=== PATIENT | female | born 1980 | race Caucasian/White ===

== ENCOUNTER 2022-09-30 06:09 | Inpatient (IN) | payer MEDICAID, OTHER ==
[~2022-09-30] VITALS: Ht 152.4 cm; Wt 40.2 kg
[2022-09-30 07:43] LABS: Albumin 3.4 g/dL (3.4-5.0); Calcium 8.9 mg/dL (8.5-10.1); Potassium 3.1 mmol/L (3.5-5.1)
[2022-09-30 07:46] LABS: BUN/Creatinine Ratio 19.1
[2022-09-30 07:52] LABS: Basophils # (auto) 0.1 10 ^3/uL (0-0.2); Eosinophils # (auto) 0.1 10 ^3/uL (0-0.8); Eosinophils % (auto) 0.9 % (0.0-7.0); Lymphocytes # (auto) 1.5 10 ^3/uL (0.4-5.4); Monocytes # (auto) 0.5 10 ^3/uL (0-1.3)
[2022-09-30 07:54] LABS: Hematocrit 41.3 % (36.0-46.0); Lymphocytes % (auto) 20.3 % (10.0-50.0); Mean Corpuscular Hemoglobin 23.3 pg (28.0-32.0); Mean Corpuscular Hgb Conc. 31.5 g/dL (32.0-36.0); Mean Corpuscular Volume 73.8 fL (80.0-100.0); Monocytes % (auto) 7.3 % (0.0-12.0); Neutrophils # (auto) 5.3 10 ^3/uL (1.6-8.6); Neutrophils % (auto) 70.5 % (37.0-80.0); Nucleated Red Blood Cells % 0.3 %; White Blood Cell 7.5 10^3/uL (4.4-10.8)
[2022-09-30 08:41] LABS: Red Cell Distribution Width 21.7 % (11.8-14.3)
[2022-09-30] MEDS ORDERED: SODIUM CHLORIDE 0.9% 1,000 ML IV ONE (10:45)
[2022-09-30 11:59] LABS: Urine Bacteria NONE SEEN /hpf (None Seen); Urine Blood 1+ /uL (Negative); Urine Specific Gravity 1.006 (1.001-1.035); Urine WBC 37 /hpf (0 - 5)
[2022-09-30] MEDS ORDERED: POTASSIUM EFFERVESENT TAB 25 MEQ PO ONE (13:45)
[2022-09-30] MEDS ORDERED: cefTRIAXone 1GM/50ML D5W 50 ML IV ONE (13:45)
[2022-09-30] MEDS ORDERED: FUROSEMIDE 40 MG/4 ML VIAL IV ONE (17:15)
[2022-09-30] MEDS ORDERED: MORPHINE SULFATE INJ 2 MG/ml SYRG IV PRN (17:15)
[2022-09-30] MEDS ORDERED: DEXTROSE (50%) 50ML SYRG IV PRN (17:15)
[2022-09-30] MEDS ORDERED: NITROGLYCERIN 0.4 MG SL TAB SL PRN (17:15)
[2022-09-30] MEDS ORDERED: CARV3.1240 PO (17:28)
[2022-09-30] MEDS ORDERED: hydrALAZINE HCL 20 MG/ML VL IV PRN (17:30)
[2022-09-30] MEDS ORDERED: ASPirin 325 MG TAB PO ONE (17:30)
[2022-09-30 18:17] LABS: Cholesterol 112 mg/dL (< 200)
[2022-09-30 18:20] LABS: HDL Cholesterol 25 mg/dL (40-59); LDL Cholesterol 77 mg/dL (< 100); Triglycerides 83 mg/dL (< 150)
[2022-09-30 18:20] LABS: Lactic Acid w/Reflex 3.1 mmol/L (0.4-2.0)
[2022-09-30 19:30] VITALS: BP 115/71
[2022-10-01 06:24] LABS: Basophils # (auto) 0.1 10 ^3/uL (0-0.2); Eosinophils # (auto) 0.1 10 ^3/uL (0-0.8)
[2022-10-01 06:25] LABS: Basophils % (auto) 1.2 % (0.0-2.0); Eosinophils % (auto) 0.9 % (0.0-7.0); Hematocrit 37.3 % (36.0-46.0); Hemoglobin 12.3 g/dL (12.2-16.2); Lymphocytes # (auto) 1.7 10 ^3/uL (0.4-5.4); Lymphocytes % (auto) 23.3 % (10.0-50.0); Mean Corpuscular Hemoglobin 23.9 pg (28.0-32.0); Mean Corpuscular Hgb Conc. 32.9 g/dL (32.0-36.0); Mean Corpuscular Volume 72.5 fL (80.0-100.0); Monocytes # (auto) 0.6 10 ^3/uL (0-1.3); Monocytes % (auto) 7.8 % (0.0-12.0); Neutrophils # (auto) 4.9 10 ^3/uL (1.6-8.6); Neutrophils % (auto) 66.8 % (37.0-80.0); Nucleated Red Blood Cells % 0.2 %; Red Blood Cells 5.14 10^6/uL (4.0-5.20); White Blood Cell 7.3 10^3/uL (4.4-10.8)
[2022-10-01 06:26] LABS: Red Cell Distribution Width 21.6 % (11.8-14.3)
[2022-10-01 06:40] LABS: Albumin 3.3 g/dL (3.4-5.0); Calcium 8.6 mg/dL (8.5-10.1); Potassium 3.2 mmol/L (3.5-5.1)
[2022-10-01 06:45] LABS: BUN/Creatinine Ratio 14.5; Bilirubin, Total 3.7 mg/dL (0.2-1.0); Total Protein 6.3 g/dL (6.4-8.2)
[2022-10-01] MEDS: ACCU-CHEK COMFORT CURVE STRIP VI SCH ×5 (08:49→21:51)
[2022-10-01] MEDS: InsuLIN REG 1unit/0.01ml Soln (100units/ml) SC SCH ×5 (08:49→21:51)
[2022-10-01] MEDS: AZTREONAM 1GM INJ 1 GM in D5W 5% 50 ML IV SCH ×4 (08:49→21:51)
[2022-10-01] MEDS: MAGNESIUM SULFATE 1GM/100ML 100 ML IV SCH (08:52)
[2022-10-01] MEDS: ATORVASTATIN 20 MG TAB PO SCH ×2 (08:56→21:51)
[2022-10-01] MEDS ORDERED: POTASSIUM EFFERVESENT TAB 25 MEQ PO ONE (09:00)
[2022-10-01] MEDS: SODIUM CHLORIDE 0.9% 1,000 ML IV SCH ×3 (09:07→23:17)
[2022-10-01 09:32] VITALS: BP 79/60
[2022-10-01] MEDS: ASPirin 81 mg TAB PO SCH (10:00)
[2022-10-01] MEDS ORDERED: FUROSEMIDE 40 MG/4 ML VIAL IV SCH (10:00)
[2022-10-01] MEDS: NICOTINE 7MG/24HR TOPICAL PATCH TD SCH (11:00)
[2022-10-01] MEDS: ENOXAPARIN SOD 40 MG/0.4 ML SYRINGE SC SCH (11:46)
[2022-10-01 17:28] VITALS: BP 108/73
[2022-10-01 17:46] VITALS: BP 108/73
[2022-10-01 22:00] VITALS: BP 93/66
[2022-10-02 05:00] VITALS: BP 109/77
[2022-10-02] MEDS: AZTREONAM 1GM INJ 1 GM in D5W 5% 50 ML IV SCH ×3 (05:08→22:40)
[2022-10-02] MEDS: ACCU-CHEK COMFORT CURVE STRIP VI SCH ×4 (06:26→22:00)
[2022-10-02] MEDS: InsuLIN REG 1unit/0.01ml Soln (100units/ml) SC SCH ×4 (06:27→22:42)
[2022-10-02 07:05] LABS: Basophils # (auto) 0.1 10 ^3/uL (0-0.2); Eosinophils # (auto) 0.1 10 ^3/uL (0-0.8); Hemoglobin 11.9 g/dL (12.2-16.2); Lymphocytes # (auto) 1.3 10 ^3/uL (0.4-5.4); Mean Corpuscular Hemoglobin 22.7 pg (28.0-32.0); Nucleated Red Blood Cells % 0.1 %
[2022-10-02 07:08] LABS: Basophils % (auto) 1.2 % (0.0-2.0); Hematocrit 38.1 % (36.0-46.0); Lymphocytes % (auto) 20.7 % (10.0-50.0); Mean Corpuscular Hgb Conc. 31.1 g/dL (32.0-36.0); Mean Corpuscular Volume 72.8 fL (80.0-100.0); Monocytes # (auto) 0.5 10 ^3/uL (0-1.3); Monocytes % (auto) 8.2 % (0.0-12.0); Neutrophils # (auto) 4.4 10 ^3/uL (1.6-8.6); Neutrophils % (auto) 67.9 % (37.0-80.0); Red Blood Cells 5.23 10^6/uL (4.0-5.20); White Blood Cell 6.4 10^3/uL (4.4-10.8)
[2022-10-02 07:18] LABS: Red Cell Distribution Width 21.8 % (11.8-14.3)
[2022-10-02 07:23] LABS: BUN/Creatinine Ratio 26.8; Calcium 8.4 mg/dL (8.5-10.1); Potassium 3.5 mmol/L (3.5-5.1)
[2022-10-02 09:00] VITALS: BP 110/84
[2022-10-02] MEDS: ALBUTEROL MEDNEB 2.5 mg/3ml NEB NEB PRN (09:10)
[2022-10-02] MEDS: NICOTINE 7MG/24HR TOPICAL PATCH TD SCH (10:00)
[2022-10-02] MEDS ORDERED: FUROSEMIDE 40 MG/4 ML VIAL IV ONE (10:00)
[2022-10-02] MEDS: ASPirin 81 mg TAB PO SCH (10:00)
[2022-10-02] MEDS: FUROSEMIDE 40 MG/4 ML VIAL IV SCH ×2 (10:01→16:48)
[2022-10-02] MEDS: ENOXAPARIN SOD 40 MG/0.4 ML SYRINGE SC SCH (11:13)
[2022-10-02] MEDS: MORPHINE SULFATE INJ 2 MG/ml SYRG IV PRN ×2 (11:21→17:15)
[2022-10-02 11:54] LABS: Alcohol, Urine < 3.0 mg/dL (0-10); Amphetamine Screen, Urine NEGATIVE (NEGATIVE); Barbiturate Scree,Urine NEGATIVE (NEGATIVE); Benzodiazephine Screen, Urine NEGATIVE (NEGATIVE); Cannabinoid Screen, Urine NEGATIVE (NEGATIVE); Cocaine Screen, Urine NEGATIVE (NEGATIVE); Opiate Scree,Urine NEGATIVE (NEGATIVE); Phencyclidine Screen, Urine NEGATIVE (NEGATIVE)
[2022-10-02 13:00] VITALS: BP 117/90
[2022-10-02 17:00] VITALS: BP 121/87
[2022-10-02 20:00] VITALS: BP 105/78
[2022-10-02 22:00] VITALS: BP 105/78
[2022-10-02] MEDS: ATORVASTATIN 20 MG TAB PO SCH (22:41)
[2022-10-02] MEDS: POTASSIUM EFFERVESENT TAB 25 MEQ PO SCH (22:41)
[2022-10-03 05:00] VITALS: BP 106/77
[2022-10-03] MEDS: AZTREONAM 1GM INJ 1 GM in D5W 5% 50 ML IV SCH ×3 (06:01→23:21)
[2022-10-03] MEDS: ACCU-CHEK COMFORT CURVE STRIP VI SCH ×4 (06:02→21:13)
[2022-10-03] MEDS: InsuLIN REG 1unit/0.01ml Soln (100units/ml) SC SCH ×4 (06:02→21:13)
[2022-10-03] MEDS: FUROSEMIDE 40 MG/4 ML VIAL IV SCH ×2 (06:02→18:15)
[2022-10-03 06:34] LABS: Basophils # (auto) 0.1 10 ^3/uL (0-0.2); Eosinophils # (auto) 0.1 10 ^3/uL (0-0.8); Eosinophils % (auto) 1.2 % (0.0-7.0); Hemoglobin 11.8 g/dL (12.2-16.2); Lymphocytes # (auto) 1.5 10 ^3/uL (0.4-5.4); Monocytes # (auto) 0.7 10 ^3/uL (0-1.3); Nucleated Red Blood Cells % 0.1 %
[2022-10-03 06:36] LABS: Basophils % (auto) 1.1 % (0.0-2.0); Hematocrit 37.6 % (36.0-46.0); Lymphocytes % (auto) 17.9 % (10.0-50.0); Mean Corpuscular Hemoglobin 22.9 pg (28.0-32.0); Mean Corpuscular Hgb Conc. 31.4 g/dL (32.0-36.0); Monocytes % (auto) 8.6 % (0.0-12.0); Neutrophils # (auto) 5.8 10 ^3/uL (1.6-8.6); Neutrophils % (auto) 71.2 % (37.0-80.0); Red Blood Cells 5.15 10^6/uL (4.0-5.20); White Blood Cell 8.1 10^3/uL (4.4-10.8)
[2022-10-03 06:41] LABS: Red Cell Distribution Width 21.9 % (11.8-14.3)
[2022-10-03 07:07] LABS: Potassium 3.9 mmol/L (3.5-5.1)
[2022-10-03 07:18] LABS: BUN/Creatinine Ratio 19.5; Calcium 8.8 mg/dL (8.5-10.1)
[2022-10-03 08:00] VITALS: BP_SYST 105; BP_SYST 108; BP_DIAS 78; BP_DIAS 80
[2022-10-03] MEDS: NICOTINE 7MG/24HR TOPICAL PATCH TD SCH (10:00)
[2022-10-03 12:00] VITALS: BP 97/53
[2022-10-03] MEDS ORDERED: FUROSEMIDE 40 MG/4 ML VIAL IV ONE (12:00)
[2022-10-03] MEDS: POTASSIUM EFFERVESENT TAB 25 MEQ PO SCH ×2 (12:00→21:21)
[2022-10-03] MEDS: ENOXAPARIN SOD 40 MG/0.4 ML SYRINGE SC SCH (12:03)
[2022-10-03] MEDS: ASPirin 81 mg TAB PO SCH (12:04)
[2022-10-03] MEDS: ALBUTEROL MEDNEB 2.5 mg/3ml NEB NEB PRN (13:26)
[2022-10-03] MEDS ORDERED: LORazepam 2MG/ML-1ML VIAL IV PRN (13:45)
[2022-10-03] MEDS: ACETAMINOPHEN 325 MG TAB PO PRN (13:46)
[2022-10-03 16:00] VITALS: BP 106/85
[2022-10-03] MEDS ORDERED: FUROSEMIDE 40 MG/4 ML VIAL IV SCH (18:00)
[2022-10-03] MEDS ORDERED: ALBUAER3 IN (18:21)
[2022-10-03] MEDS ORDERED: BUME2TAB5 PO (18:23)
[2022-10-03] MEDS ORDERED: SPIR25TA8 PO (18:23)
[2022-10-03] MEDS ORDERED: ONDA-155 PO (18:24)
[2022-10-03] MEDS ORDERED: DOCU100C10 PO (18:26)
[2022-10-03] MEDS ORDERED: PRED1PAK9 PO (18:27)
[2022-10-03] MEDS ORDERED: POLY33504 PO (18:28)
[2022-10-03] MEDS: ATORVASTATIN 20 MG TAB PO SCH (21:21)
[2022-10-03 22:00] VITALS: BP 98/58
[2022-10-03] MEDS: MORPHINE SULFATE INJ 2 MG/ml SYRG IV PRN (22:47)
[2022-10-04] MEDS: HYDROcodone-ACET 5/325MG TAB PO PRN (02:05)
[2022-10-04 05:00] VITALS: BP 109/70
[2022-10-04] MEDS: FUROSEMIDE 40 MG/4 ML VIAL IV SCH ×2 (06:13→18:57)
[2022-10-04] MEDS: ACCU-CHEK COMFORT CURVE STRIP VI SCH ×4 (06:14→22:12)
[2022-10-04] MEDS: AZTREONAM 1GM INJ 1 GM in D5W 5% 50 ML IV SCH ×3 (06:14→22:10)
[2022-10-04] MEDS: InsuLIN REG 1unit/0.01ml Soln (100units/ml) SC SCH ×4 (06:14→22:00)
[2022-10-04 08:00] VITALS: BP 101/56
[2022-10-04] MEDS: POTASSIUM EFFERVESENT TAB 25 MEQ PO SCH ×2 (10:00→22:11)
[2022-10-04] MEDS: NICOTINE 7MG/24HR TOPICAL PATCH TD SCH (10:00)
[2022-10-04] MEDS: ASPirin 81 mg TAB PO SCH (11:02)
[2022-10-04] MEDS: ENOXAPARIN SOD 40 MG/0.4 ML SYRINGE SC SCH (11:04)
[2022-10-04] MEDS: MORPHINE SULFATE INJ 2 MG/ml SYRG IV PRN ×2 (11:06→20:24)
[2022-10-04 12:00] VITALS: BP_SYST 102; BP_SYST 95; BP_DIAS 58; BP_DIAS 67
[2022-10-04 16:00] VITALS: BP 100/70
[2022-10-04 22:00] VITALS: BP 104/70
[2022-10-04] MEDS: ATORVASTATIN 20 MG TAB PO SCH (22:11)
[2022-10-05] VITALS (9 sets, daily range): BP systolic 99–115; BP diastolic 59–78
[2022-10-05] MEDS: AZTREONAM 1GM INJ 1 GM in D5W 5% 50 ML IV SCH ×2 (05:43→15:05)
[2022-10-05] MEDS: FUROSEMIDE 40 MG/4 ML VIAL IV SCH ×2 (05:44→17:42)
[2022-10-05] MEDS: InsuLIN REG 1unit/0.01ml Soln (100units/ml) SC SCH ×4 (05:57→22:00)
[2022-10-05] MEDS: ACCU-CHEK COMFORT CURVE STRIP VI SCH ×4 (05:57→22:16)
[2022-10-05] MEDS: MORPHINE SULFATE INJ 2 MG/ml SYRG IV PRN ×3 (07:50→23:16)
[2022-10-05] MEDS: ENOXAPARIN SOD 40 MG/0.4 ML SYRINGE SC SCH (09:32)
[2022-10-05] MEDS: POTASSIUM EFFERVESENT TAB 25 MEQ PO SCH ×2 (09:32→22:08)
[2022-10-05] MEDS: ASPirin 81 mg TAB PO SCH (09:41)
[2022-10-05] MEDS: NICOTINE 7MG/24HR TOPICAL PATCH TD SCH (10:00)
[2022-10-05] MEDS: ONDANSETRON HCL 4 MG/2 ML VIAL IV PRN (11:29)
[2022-10-05] MEDS: ATORVASTATIN 20 MG TAB PO SCH (22:07)
[2022-10-06] VITALS (51 sets, daily range): BP systolic 63–125; BP diastolic 13–76
[2022-10-06] MEDS ORDERED: SODIUM CHLORIDE 0.9% 500 ML IV ONE (03:15)
[2022-10-06] MEDS: HYDROcodone-ACET 5/325MG TAB PO PRN (04:29)
[2022-10-06] MEDS: FUROSEMIDE 40 MG/4 ML VIAL IV SCH (06:00)
[2022-10-06] MEDS: ACCU-CHEK COMFORT CURVE STRIP VI SCH ×4 (07:00→22:26)
[2022-10-06] MEDS: InsuLIN REG 1unit/0.01ml Soln (100units/ml) SC SCH ×4 (07:00→22:00)
[2022-10-06] MEDS ORDERED: cefTRIAXone 1GM/50ML D5W 50 ML IV SCH (09:00)
[2022-10-06 09:41] LABS: INR 1.67 (0.9-1.15); Partial Thromboplastin Time 27.5 sec (24.6-33.4)
[2022-10-06] MEDS: ASPirin 81 mg TAB PO SCH (10:30)
[2022-10-06] MEDS ORDERED: NOREPINEPHRINE 8 MG/250ML KIT 250 ML IV SCH (10:30)
[2022-10-06] MEDS: ENOXAPARIN SOD 40 MG/0.4 ML SYRINGE SC SCH (10:31)
[2022-10-06] MEDS: POTASSIUM EFFERVESENT TAB 25 MEQ PO SCH (10:31)
[2022-10-06] MEDS: NICOTINE 7MG/24HR TOPICAL PATCH TD SCH (10:31)
[2022-10-06] MEDS ORDERED: NOREPINEPHRINE 8 MG/250ML KIT 250 ML IV ONE (10:41)
[2022-10-06] MEDS: ONDANSETRON HCL 4 MG/2 ML VIAL IV PRN ×2 (10:50→17:02)
[2022-10-06 10:58] LABS: Basophils # (auto) 0.1 10 ^3/uL (0-0.2); Eosinophils # (auto) 0 10 ^3/uL (0-0.8); Hemoglobin 12.8 g/dL (12.2-16.2); Monocytes # (auto) 1.2 10 ^3/uL (0-1.3); Nucleated Red Blood Cells % 0.1 %
[2022-10-06 11:04] LABS: Basophils % (auto) 0.6 % (0.0-2.0); Hematocrit 43.8 % (36.0-46.0); Lymphocytes # (auto) 1.4 10 ^3/uL (0.4-5.4); Lymphocytes % (auto) 10.7 % (10.0-50.0); Mean Corpuscular Hemoglobin 22.4 pg (28.0-32.0); Mean Corpuscular Hgb Conc. 29.3 g/dL (32.0-36.0); Mean Corpuscular Volume 76.5 fL (80.0-100.0); Monocytes % (auto) 8.8 % (0.0-12.0); Neutrophils # (auto) 10.7 10 ^3/uL (1.6-8.6); Neutrophils % (auto) 79.9 % (37.0-80.0); Red Blood Cells 5.73 10^6/uL (4.0-5.20); White Blood Cell 13.4 10^3/uL (4.4-10.8)
[2022-10-06 11:16] LABS: Red Cell Distribution Width 22.4 % (11.8-14.3)
[2022-10-06 12:11] LABS: Lactic Acid w/Reflex 14.2 mmol/L (0.4-2.0)
[2022-10-06] MEDS ORDERED: LACTULOSE 20Gm/30ML SOLN PO ONE (12:45)
[2022-10-06] MEDS: MORPHINE SULFATE INJ 2 MG/ml SYRG IV PRN ×2 (12:48→17:51)
[2022-10-06] MEDS ORDERED: SODIUM CHLORIDE 0.9% 250 ML IV ONE ×2 (13:00→16:00)
[2022-10-06] MEDS ORDERED: PIPERACILLIN-TAZOB 3.375GM 100 ML IV ONE (13:30)
[2022-10-06] MEDS ORDERED: PIPERACILLIN-TAZOB 3.375GM 100 ML IV SCH (14:00)
[2022-10-06] MEDS ORDERED: MEROPENEM 1GM IVPB 100 ML IV ONE (14:15)
[2022-10-06] MEDS ORDERED: SODIUM BICARBONATE 50ML VIAL 100 ML in SOD CHL 0.45% 1,000 ML IV SCH (14:30)
[2022-10-06] MEDS ORDERED: SODIUM BICARBONATE 8.4 % INJ 50ML VIAL IV ONE (14:43)
[2022-10-06] MEDS ORDERED: PHENYLEPHRINE IV 250 ML IV SCH (14:45)
[2022-10-06] MEDS: DOPamine 1600MCG/ML D5W 250 ML IV SCH (15:09)
[2022-10-06 15:27] LABS: BUN/Creatinine Ratio 19.7; Calcium 7.9 mg/dL (8.5-10.1)
[2022-10-06] MEDS ORDERED: InsuLIN REG 1unit/0.01ml Soln (100units/ml) IV ONE ×2 (15:30→16:00)
[2022-10-06] MEDS ORDERED: ALBUTEROL SULF 2.5 MG/0.5ML(0.5%) NEB SOLN NEB ONE ×2 (15:30→16:00)
[2022-10-06] MEDS ORDERED: DEXTROSE (50%) 50ML SYRG IV ONE ×2 (15:30→16:00)
[2022-10-06] MEDS ORDERED: SODIUM ZIRCONIUM CYCL 10 GM PAK PO ONE (15:30)
[2022-10-06 15:32] LABS: Potassium 6.4 mmol/L (3.5-5.1)
[2022-10-06] MEDS ORDERED: LIDOCAINE 1% (LOCAL ANESTH.) PF 5ml SDV ID ONE (15:45)
[2022-10-06] MEDS ORDERED: CALCIUM GLUC 1,000mg/50ml-NS 50 ML IV ONE (16:00)
[2022-10-06] MEDS ORDERED: SODIUM BICARBONATE 8.4% INJ 50ML SYRINGE IV ONE (16:00)
[2022-10-06] MEDS ORDERED: VASOPRESSIN 20 UNITS in SODIUM CHL 0.9% 99 ML IV SCH (16:00)
[2022-10-06] MEDS: NOREPINEPHRINE 8 MG/250ML KIT 250 ML IV SCH ×2 (16:19→22:35)
[2022-10-06] MEDS: SODIUM BICARBONATE 50ML VIAL 50 ML in SOD CHL 0.45% 1,000 ML IV SCH (16:58)
[2022-10-06 19:44] LABS: Creatinine, Urine 78 mg/dL (30.0-125.0); Protein, Urine 20.9 mg/dL (0.0-11.9); Sodium Urine < 5 mmol/L (40-220)
[2022-10-06] MEDS: ATORVASTATIN 20 MG TAB PO SCH (22:00)
[2022-10-06] MEDS: SODIUM CHLOR 0.9% PF (SALINE LOCK) 10ML VIAL/SYR IV SCH (22:24)
[2022-10-07] VITALS (49 sets, daily range): BP systolic 105–140; BP diastolic 61–91
[2022-10-07] MEDS ORDERED: SODIUM ZIRCONIUM CYCL 10 GM PAK PO ONE (01:15)
[2022-10-07] MEDS ORDERED: SODIUM ZIRCONIUM CYCL 10 GM PAK ONE (01:18)
[2022-10-07] MEDS ORDERED: methylPREDNISolone SOD SUCC 40 MG/ML VL ONE (01:18)
[2022-10-07] MEDS: MEROPENEM 1GM IVPB 100 ML IV SCH ×2 (03:00→15:05)
[2022-10-07 04:25] LABS: Basophils # (auto) 0.1 10 ^3/uL (0-0.2); Eosinophils # (auto) 0 10 ^3/uL (0-0.8); Mean Corpuscular Hemoglobin 23.2 pg (28.0-32.0); Monocytes # (auto) 0.9 10 ^3/uL (0-1.3); Nucleated Red Blood Cells % 0.1 %; Red Blood Cells 5.28 10^6/uL (4.0-5.20)
[2022-10-07 04:29] LABS: Basophils % (auto) 0.7 % (0.0-2.0); Eosinophils % (auto) 0.1 % (0.0-7.0); Hematocrit 38.8 % (36.0-46.0); Hemoglobin 12.3 g/dL (12.2-16.2); Lymphocytes # (auto) 0.9 10 ^3/uL (0.4-5.4); Lymphocytes % (auto) 7.3 % (10.0-50.0); Mean Corpuscular Hgb Conc. 31.6 g/dL (32.0-36.0); Mean Corpuscular Volume 73.5 fL (80.0-100.0); Monocytes % (auto) 7.4 % (0.0-12.0); Neutrophils # (auto) 10.9 10 ^3/uL (1.6-8.6); Neutrophils % (auto) 84.5 % (37.0-80.0); White Blood Cell 12.9 10^3/uL (4.4-10.8)
[2022-10-07 04:34] LABS: BUN/Creatinine Ratio 24.2; Calcium 9.1 mg/dL (8.5-10.1); Potassium 5.2 mmol/L (3.5-5.1)
[2022-10-07 04:39] LABS: Red Cell Distribution Width 21.8 % (11.8-14.3)
[2022-10-07] MEDS: ACCU-CHEK COMFORT CURVE STRIP VI SCH ×3 (06:30→19:00)
[2022-10-07] MEDS: InsuLIN REG 1unit/0.01ml Soln (100units/ml) SC SCH ×3 (06:31→18:59)
[2022-10-07] MEDS: NOREPINEPHRINE 8 MG/250ML KIT 250 ML IV SCH ×2 (06:40→11:15)
[2022-10-07] MEDS: FUROSEMIDE 40 MG/4 ML VIAL IV SCH ×2 (10:00→10:06)
[2022-10-07] MEDS: MORPHINE SULFATE INJ 2 MG/ml SYRG IV PRN ×2 (10:01→13:56)
[2022-10-07] MEDS: ENOXAPARIN SOD 40 MG/0.4 ML SYRINGE SC SCH (10:06)
[2022-10-07] MEDS: ASPirin 81 mg TAB PO SCH (10:08)
[2022-10-07] MEDS: NICOTINE 7MG/24HR TOPICAL PATCH TD SCH (10:08)
[2022-10-07] MEDS: SODIUM CHLOR 0.9% PF (SALINE LOCK) 10ML VIAL/SYR IV SCH ×2 (10:09→23:00)
[2022-10-07] MEDS: SODIUM BICARBONATE 50ML VIAL 50 ML in SOD CHL 0.45% 1,000 ML IV SCH (13:59)
[2022-10-07] MEDS: ATORVASTATIN 20 MG TAB PO SCH (23:01)
[2022-10-07] MEDS ORDERED: methylPREDNISolone SOD SUCC 40 MG/ML VL IV SCH (23:30)
[2022-10-08] VITALS (79 sets, daily range): BP systolic 87–128; BP diastolic 50–86
[2022-10-08] MEDS: ACCU-CHEK COMFORT CURVE STRIP VI SCH ×5 (00:05→21:24)
[2022-10-08] MEDS: InsuLIN REG 1unit/0.01ml Soln (100units/ml) SC SCH ×5 (00:28→21:24)
[2022-10-08] MEDS: MEROPENEM 1GM IVPB 100 ML IV SCH ×3 (03:00→21:25)
[2022-10-08 04:11] LABS: Basophils # (auto) 0 10 ^3/uL (0-0.2); Basophils % (auto) 0.1 % (0.0-2.0); Eosinophils # (auto) 0 10 ^3/uL (0-0.8); Lymphocytes # (auto) 0.6 10 ^3/uL (0.4-5.4); Lymphocytes % (auto) 4.8 % (10.0-50.0)
[2022-10-08 04:13] LABS: Hematocrit 36.3 % (36.0-46.0); Hemoglobin 11.4 g/dL (12.2-16.2); Mean Corpuscular Hemoglobin 23.3 pg (28.0-32.0); Mean Corpuscular Hgb Conc. 31.3 g/dL (32.0-36.0); Mean Corpuscular Volume 74.4 fL (80.0-100.0); Monocytes % (auto) 8.1 % (0.0-12.0); Neutrophils # (auto) 11.2 10 ^3/uL (1.6-8.6); Red Blood Cells 4.88 10^6/uL (4.0-5.20); White Blood Cell 12.9 10^3/uL (4.4-10.8)
[2022-10-08 04:19] LABS: Red Cell Distribution Width 22.4 % (11.8-14.3)
[2022-10-08 04:22] LABS: Calcium 8.5 mg/dL (8.5-10.1); Potassium 3.9 mmol/L (3.5-5.1)
[2022-10-08 04:25] LABS: BUN/Creatinine Ratio 31.3
[2022-10-08] MEDS: SODIUM BICARBONATE 50ML VIAL 50 ML in SOD CHL 0.45% 1,000 ML IV SCH ×2 (05:00→13:15)
[2022-10-08] MEDS: ENOXAPARIN SOD 40 MG/0.4 ML SYRINGE SC SCH (09:32)
[2022-10-08] MEDS: NICOTINE 7MG/24HR TOPICAL PATCH TD SCH (09:33)
[2022-10-08] MEDS: ASPirin 81 mg TAB PO SCH (09:35)
[2022-10-08] MEDS: FUROSEMIDE 40 MG/4 ML VIAL IV SCH (09:35)
[2022-10-08] MEDS: MORPHINE SULFATE INJ 2 MG/ml SYRG IV PRN ×2 (09:38→19:00)
[2022-10-08] MEDS: SODIUM CHLOR 0.9% PF (SALINE LOCK) 10ML VIAL/SYR IV SCH ×2 (10:30→21:25)
[2022-10-08 14:02] LABS: Hepatitis C Antibody Negative (Negative)
[2022-10-08] MEDS: DOPamine 1600MCG/ML D5W 250 ML IV SCH ×2 (14:30→15:14)
[2022-10-08] MEDS: NOREPINEPHRINE 8 MG/250ML KIT 250 ML IV SCH (14:30)
[2022-10-08] MEDS: ATORVASTATIN 20 MG TAB PO SCH (21:24)
[2022-10-09] VITALS (42 sets, daily range): BP systolic 85–114; BP diastolic 59–84
[2022-10-09 04:11] LABS: Basophils # (auto) 0 10 ^3/uL (0-0.2); Basophils % (auto) 0.2 % (0.0-2.0); Eosinophils # (auto) 0 10 ^3/uL (0-0.8); Eosinophils % (auto) 0.5 % (0.0-7.0); Monocytes # (auto) 0.8 10 ^3/uL (0-1.3); Neutrophils # (auto) 5.5 10 ^3/uL (1.6-8.6); Nucleated Red Blood Cells % 0.1 %
[2022-10-09 04:13] LABS: Hemoglobin 11.4 g/dL (12.2-16.2); Lymphocytes # (auto) 1.4 10 ^3/uL (0.4-5.4); Lymphocytes % (auto) 17.7 % (10.0-50.0); Mean Corpuscular Hemoglobin 22.3 pg (28.0-32.0); Mean Corpuscular Hgb Conc. 30.1 g/dL (32.0-36.0); Monocytes % (auto) 10.3 % (0.0-12.0); Neutrophils % (auto) 71.3 % (37.0-80.0); Red Blood Cells 5.14 10^6/uL (4.0-5.20); White Blood Cell 7.7 10^3/uL (4.4-10.8)
[2022-10-09 04:15] LABS: Red Cell Distribution Width 22.3 % (11.8-14.3)
[2022-10-09 04:20] LABS: BUN/Creatinine Ratio 40.4; Calcium 8.2 mg/dL (8.5-10.1); Potassium 3.6 mmol/L (3.5-5.1)
[2022-10-09 04:25] LABS: INR 1.29 (0.9-1.15); Partial Thromboplastin Time 29.2 sec (24.6-33.4)
[2022-10-09] MEDS: MEROPENEM 1GM IVPB 100 ML IV SCH ×3 (05:03→21:33)
[2022-10-09] MEDS: InsuLIN REG 1unit/0.01ml Soln (100units/ml) SC SCH ×4 (06:21→21:58)
[2022-10-09] MEDS: ACCU-CHEK COMFORT CURVE STRIP VI SCH ×4 (06:21→21:33)
[2022-10-09] MEDS: ASPirin 81 mg TAB PO SCH (10:00)
[2022-10-09] MEDS: ENOXAPARIN SOD 40 MG/0.4 ML SYRINGE SC SCH (10:00)
[2022-10-09] MEDS: HYDROcodone-ACET 5/325MG TAB PO PRN ×3 (10:04→22:11)
[2022-10-09] MEDS: SODIUM CHLOR 0.9% PF (SALINE LOCK) 10ML VIAL/SYR IV SCH ×2 (10:05→21:33)
[2022-10-09] MEDS ORDERED: LIDOCAINE 2%HCL (LOCAL ANESTH.) INJ 10ml MDV ONE (12:01)
[2022-10-09] MEDS ORDERED: ANGIOMAX 250 MG VIAL IV ONE (12:19)
[2022-10-09] MEDS ORDERED: fentaNYL CITRATE 100 MCG/2 ML VL ONE (12:19)
[2022-10-09] MEDS ORDERED: MIDAZOLAM HCL 2MG/2ML 2ml VIAL (1mg/ml) ONE (12:19)
[2022-10-09] MEDS ORDERED: SODIUM CHL 0.9% 0 ML ONE (12:19)
[2022-10-09] MEDS ORDERED: ATROPINE SULF 1 MG/10ml SYR ONE (12:42)
[2022-10-09] MEDS: DOPamine 1600MCG/ML D5W 250 ML IV SCH (14:30)
[2022-10-09] MEDS: FUROSEMIDE 40 MG/4 ML VIAL IV SCH (15:14)
[2022-10-09] MEDS: NICOTINE 7MG/24HR TOPICAL PATCH TD SCH (15:25)
[2022-10-09] MEDS: DOBUTamine 1000MCG/ML 250 ML IV SCH (18:12)
[2022-10-09] MEDS: ATORVASTATIN 20 MG TAB PO SCH (21:33)
[2022-10-10] VITALS (19 sets, daily range): BP systolic 82–102; BP diastolic 54–72
[2022-10-10] MEDS: MEROPENEM 1GM IVPB 100 ML IV SCH ×3 (05:28→22:52)
[2022-10-10] MEDS: ACCU-CHEK COMFORT CURVE STRIP VI SCH ×4 (05:55→22:54)
[2022-10-10] MEDS: InsuLIN REG 1unit/0.01ml Soln (100units/ml) SC SCH ×4 (05:55→22:00)
[2022-10-10] MEDS: NICOTINE 7MG/24HR TOPICAL PATCH TD SCH (09:59)
[2022-10-10] MEDS: ENOXAPARIN SOD 40 MG/0.4 ML SYRINGE SC SCH (10:00)
[2022-10-10] MEDS: ASPirin 81 mg TAB PO SCH (10:00)
[2022-10-10] MEDS: SODIUM CHLOR 0.9% PF (SALINE LOCK) 10ML VIAL/SYR IV SCH ×2 (10:00→22:53)
[2022-10-10] MEDS: FUROSEMIDE 40 MG/4 ML VIAL IV SCH ×2 (10:02→22:00)
[2022-10-10] MEDS: HYDROcodone-ACET 5/325MG TAB PO PRN ×2 (10:03→23:04)
[2022-10-10] MEDS: OXYCODONE W/ ACETAMINOPHEN 5/325MG TABLET PO PRN (12:57)
[2022-10-10] MEDS: DOPamine 1600MCG/ML D5W 250 ML IV SCH (14:30)
[2022-10-10] MEDS: DOBUTamine 1000MCG/ML 250 ML IV SCH (15:30)
[2022-10-10] MEDS ORDERED: FUROSEMIDE 40 MG/4 ML VIAL IV SCH (19:30)
[2022-10-10] MEDS: ATORVASTATIN 20 MG TAB PO SCH (22:53)
[2022-10-10] MEDS: levETIRAcetam 500 MG TAB PO SCH (22:53)
[2022-10-11] VITALS (7 sets, daily range): BP systolic 76–132; BP diastolic 58–69
[2022-10-11] MEDS: OXYCODONE W/ ACETAMINOPHEN 5/325MG TABLET PO PRN ×2 (04:35→23:34)
[2022-10-11] MEDS: MEROPENEM 1GM IVPB 100 ML IV SCH ×3 (05:13→23:23)
[2022-10-11] MEDS: InsuLIN REG 1unit/0.01ml Soln (100units/ml) SC SCH ×4 (06:14→21:55)
[2022-10-11] MEDS: ACCU-CHEK COMFORT CURVE STRIP VI SCH ×5 (06:14→21:55)
[2022-10-11] MEDS: levETIRAcetam 500 MG TAB PO SCH ×2 (09:28→21:29)
[2022-10-11] MEDS: ASPirin 81 mg TAB PO SCH (09:28)
[2022-10-11] MEDS: ENOXAPARIN SOD 40 MG/0.4 ML SYRINGE SC SCH (09:29)
[2022-10-11] MEDS: NICOTINE 7MG/24HR TOPICAL PATCH TD SCH (09:29)
[2022-10-11] MEDS: FUROSEMIDE 40 MG/4 ML VIAL IV SCH ×2 (12:21→21:25)
[2022-10-11] MEDS: DOPamine 1600MCG/ML D5W 250 ML IV SCH (14:30)
[2022-10-11 15:21] LABS: Basophils # (auto) 0.1 10 ^3/uL (0-0.2); Eosinophils # (auto) 0.2 10 ^3/uL (0-0.8); Lymphocytes # (auto) 1.5 10 ^3/uL (0.4-5.4); Neutrophils # (auto) 3.9 10 ^3/uL (1.6-8.6); Nucleated Red Blood Cells % 0.2 %; White Blood Cell 6.3 10^3/uL (4.4-10.8)
[2022-10-11 15:23] LABS: Basophils % (auto) 1.2 % (0.0-2.0); Eosinophils % (auto) 2.5 % (0.0-7.0); Hematocrit 38.7 % (36.0-46.0); Lymphocytes % (auto) 23.2 % (10.0-50.0); Mean Corpuscular Hemoglobin 23.2 pg (28.0-32.0); Mean Corpuscular Hgb Conc. 31.1 g/dL (32.0-36.0); Mean Corpuscular Volume 74.5 fL (80.0-100.0); Monocytes # (auto) 0.7 10 ^3/uL (0-1.3); Monocytes % (auto) 11.6 % (0.0-12.0); Neutrophils % (auto) 61.5 % (37.0-80.0)
[2022-10-11 15:30] LABS: Red Cell Distribution Width 22.3 % (11.8-14.3)
[2022-10-11] MEDS: DOBUTamine 1000MCG/ML 250 ML IV SCH (15:30)
[2022-10-11] MEDS: HYDROcodone-ACET 5/325MG TAB PO PRN (16:05)
[2022-10-11 16:07] LABS: INR 1.29 (0.9-1.15)
[2022-10-11] MEDS: SODIUM CHLOR 0.9% PF (SALINE LOCK) 10ML VIAL/SYR IV SCH ×2 (16:45→21:25)
[2022-10-11] MEDS: SACUBITRIL-VALSARTAN 24mg/26mg TAB PO SCH (21:25)
[2022-10-11] MEDS: ATORVASTATIN 20 MG TAB PO SCH (21:29)
[2022-10-12] MEDS: DOBUTamine 1000MCG/ML 250 ML IV SCH (03:46)
[2022-10-12 04:53] VITALS: BP 102/55
[2022-10-12] MEDS: MEROPENEM 1GM IVPB 100 ML IV SCH ×3 (05:27→21:45)
[2022-10-12] MEDS: ACCU-CHEK COMFORT CURVE STRIP VI SCH ×4 (06:26→21:46)
[2022-10-12] MEDS: InsuLIN REG 1unit/0.01ml Soln (100units/ml) SC SCH ×4 (06:26→21:46)
[2022-10-12] MEDS: FUROSEMIDE 40 MG/4 ML VIAL IV SCH ×2 (08:59→21:44)
[2022-10-12 09:00] VITALS: BP 107/53
[2022-10-12] MEDS: ASPirin 81 mg TAB PO SCH (09:00)
[2022-10-12] MEDS: SACUBITRIL-VALSARTAN 24mg/26mg TAB PO SCH ×2 (09:00→21:45)
[2022-10-12] MEDS: SODIUM CHLOR 0.9% PF (SALINE LOCK) 10ML VIAL/SYR IV SCH ×2 (09:00→21:45)
[2022-10-12] MEDS: NICOTINE 7MG/24HR TOPICAL PATCH TD SCH (09:01)
[2022-10-12] MEDS: levETIRAcetam 500 MG TAB PO SCH ×2 (09:01→21:45)
[2022-10-12] MEDS: ENOXAPARIN SOD 40 MG/0.4 ML SYRINGE SC SCH (09:01)
[2022-10-12] MEDS: diphenhdrAMINE HCL 50 MG/1 ML VL IV PRN (10:08)
[2022-10-12] MEDS: OXYCODONE W/ ACETAMINOPHEN 5/325MG TABLET PO PRN (10:08)
[2022-10-12 13:00] VITALS: BP 92/56
[2022-10-12] MEDS ORDERED: SODIUM CHLORIDE 0.9% 250 ML IV ONE (13:00)
[2022-10-12] MEDS: DOPamine 1600MCG/ML D5W 250 ML IV SCH (14:30)
[2022-10-12] MEDS: MORPHINE SULFATE INJ 2 MG/ml SYRG IV PRN (16:30)
[2022-10-12 17:00] VITALS: BP 101/50
[2022-10-12] MEDS: ATORVASTATIN 20 MG TAB PO SCH (21:46)
[2022-10-12 22:00] VITALS: BP 105/51
[2022-10-13 05:26] VITALS: BP 120/42
[2022-10-13] MEDS: MEROPENEM 1GM IVPB 100 ML IV SCH ×3 (05:37→21:56)
[2022-10-13 06:30] LABS: Eosinophils # (auto) 0.1 10 ^3/uL (0-0.8); Eosinophils % (auto) 1.6 % (0.0-7.0); Lymphocytes # (auto) 1.1 10 ^3/uL (0.4-5.4); Mean Corpuscular Hgb Conc. 31.4 g/dL (32.0-36.0)
[2022-10-13 06:33] LABS: Basophils # (auto) 0 10 ^3/uL (0-0.2); Basophils % (auto) 0.6 % (0.0-2.0); Hematocrit 38.4 % (36.0-46.0); Lymphocytes % (auto) 15.2 % (10.0-50.0); Mean Corpuscular Volume 73.2 fL (80.0-100.0); Monocytes # (auto) 0.5 10 ^3/uL (0-1.3); Monocytes % (auto) 7.1 % (0.0-12.0); Neutrophils # (auto) 5.7 10 ^3/uL (1.6-8.6); Neutrophils % (auto) 75.5 % (37.0-80.0); Nucleated Red Blood Cells % 0.3 %; Red Blood Cells 5.24 10^6/uL (4.0-5.20); Red Cell Distribution Width 21.6 % (11.8-14.3); White Blood Cell 7.6 10^3/uL (4.4-10.8)
[2022-10-13] MEDS: ACCU-CHEK COMFORT CURVE STRIP VI SCH ×4 (06:44→22:04)
[2022-10-13 06:45] LABS: BUN/Creatinine Ratio 31.9; Calcium 8.6 mg/dL (8.5-10.1); Potassium 4.6 mmol/L (3.5-5.1)
[2022-10-13] MEDS: InsuLIN REG 1unit/0.01ml Soln (100units/ml) SC SCH ×4 (06:45→22:00)
[2022-10-13] MEDS: MORPHINE SULFATE INJ 2 MG/ml SYRG IV PRN (06:47)
[2022-10-13 09:00] VITALS: BP 113/57
[2022-10-13] MEDS: ASPirin 81 mg TAB PO SCH (09:41)
[2022-10-13] MEDS: NICOTINE 7MG/24HR TOPICAL PATCH TD SCH (09:41)
[2022-10-13] MEDS: SODIUM CHLOR 0.9% PF (SALINE LOCK) 10ML VIAL/SYR IV SCH ×2 (09:42→21:56)
[2022-10-13] MEDS: SACUBITRIL-VALSARTAN 24mg/26mg TAB PO SCH ×2 (09:42→21:55)
[2022-10-13] MEDS: levETIRAcetam 500 MG TAB PO SCH ×2 (09:42→21:54)
[2022-10-13] MEDS: ENOXAPARIN SOD 40 MG/0.4 ML SYRINGE SC SCH (09:42)
[2022-10-13] MEDS: FUROSEMIDE 40 MG/4 ML VIAL IV SCH ×2 (09:43→22:00)
[2022-10-13] MEDS: ONDANSETRON HCL 4 MG/2 ML VIAL IV PRN (09:56)
[2022-10-13] MEDS ORDERED: FUROSEMIDE 20 MG/2 ML VIAL IV ONE (11:45)
[2022-10-13] MEDS: HYDROcodone-ACET 5/325MG TAB PO PRN ×2 (12:03→18:54)
[2022-10-13 13:00] VITALS: BP 106/60
[2022-10-13] MEDS: DOPamine 1600MCG/ML D5W 250 ML IV SCH (15:17)
[2022-10-13] MEDS: DOBUTamine 1000MCG/ML 250 ML IV SCH (15:47)
[2022-10-13 17:00] VITALS: BP 83/55
[2022-10-13 18:57] VITALS: BP 109/50
[2022-10-13] MEDS: ATORVASTATIN 20 MG TAB PO SCH (21:58)
[2022-10-13 22:00] VITALS: BP 97/46
[2022-10-14] VITALS (43 sets, daily range): BP systolic 63–142; BP diastolic 18–90
[2022-10-14] MEDS: HYDROcodone-ACET 5/325MG TAB PO PRN ×2 (02:31→10:10)
[2022-10-14] MEDS: MEROPENEM 1GM IVPB 100 ML IV SCH ×3 (06:00→22:26)
[2022-10-14 06:12] LABS: Basophils # (auto) 0.1 10 ^3/uL (0-0.2); Basophils % (auto) 0.8 % (0.0-2.0); Eosinophils # (auto) 0.2 10 ^3/uL (0-0.8); Eosinophils % (auto) 2.4 % (0.0-7.0); Hematocrit 36.7 % (36.0-46.0); Hemoglobin 11.7 g/dL (12.2-16.2); Lymphocytes # (auto) 1.2 10 ^3/uL (0.4-5.4); Lymphocytes % (auto) 17.4 % (10.0-50.0); Mean Corpuscular Hemoglobin 23.2 pg (28.0-32.0); Mean Corpuscular Hgb Conc. 31.9 g/dL (32.0-36.0); Mean Corpuscular Volume 72.8 fL (80.0-100.0); Monocytes # (auto) 0.6 10 ^3/uL (0-1.3); Neutrophils % (auto) 70.4 % (37.0-80.0); Red Blood Cells 5.05 10^6/uL (4.0-5.20); White Blood Cell 7.1 10^3/uL (4.4-10.8)
[2022-10-14 06:15] LABS: Red Cell Distribution Width 21.7 % (11.8-14.3)
[2022-10-14 06:18] LABS: Calcium 8.6 mg/dL (8.5-10.1); Potassium 4.5 mmol/L (3.5-5.1)
[2022-10-14 06:23] LABS: BUN/Creatinine Ratio 33.1
[2022-10-14] MEDS: InsuLIN REG 1unit/0.01ml Soln (100units/ml) SC SCH ×4 (07:00→22:00)
[2022-10-14] MEDS: ACCU-CHEK COMFORT CURVE STRIP VI SCH ×4 (07:01→22:27)
[2022-10-14] MEDS: NICOTINE 7MG/24HR TOPICAL PATCH TD SCH (10:00)
[2022-10-14] MEDS: SACUBITRIL-VALSARTAN 24mg/26mg TAB PO SCH ×2 (10:05→22:00)
[2022-10-14] MEDS: levETIRAcetam 500 MG TAB PO SCH ×2 (10:05→22:27)
[2022-10-14] MEDS: ASPirin 81 mg TAB PO SCH (10:06)
[2022-10-14] MEDS: ENOXAPARIN SOD 40 MG/0.4 ML SYRINGE SC SCH (10:06)
[2022-10-14] MEDS: FUROSEMIDE 40 MG/4 ML VIAL IV SCH ×2 (10:10→22:12)
[2022-10-14] MEDS: SODIUM CHLOR 0.9% PF (SALINE LOCK) 10ML VIAL/SYR IV SCH ×2 (10:12→22:11)
[2022-10-14] MEDS: diphenhdrAMINE HCL 50 MG/1 ML VL IV PRN (13:41)
[2022-10-14] MEDS ORDERED: FUROSEMIDE 20 MG/2 ML VIAL IV ONE (17:00)
[2022-10-14] MEDS ORDERED: MIDAZOLAM HCL 5 MG/ML-1ML VIAL ONE ×2 (17:13→17:19)
[2022-10-14] MEDS ORDERED: MIDAZOLAM HCL 5 MG/ML-1ML VIAL IV ONE (17:15)
[2022-10-14] MEDS: NOREPINEPHRINE 8 MG/250ML KIT 250 ML IV SCH (17:15)
[2022-10-14] MEDS ORDERED: MIDAZOLAM DRIP 50 mg/50mL 50 ML IV ONE ×2 (17:20→20:04)
[2022-10-14 19:42] LABS: Lactic Acid w/Reflex 4.1 mmol/L (0.4-2.0)
[2022-10-14 20:19] LABS: Hemoglobin 13.7 g/dL (12.2-16.2); Nucleated Red Blood Cells % 0.3 %
[2022-10-14 20:21] LABS: Basophils # (auto) 0.1 10 ^3/uL (0-0.2); Basophils % (auto) 0.9 % (0.0-2.0); Eosinophils # (auto) 0.1 10 ^3/uL (0-0.8); Eosinophils % (auto) 1.3 % (0.0-7.0); Hematocrit 43.7 % (36.0-46.0); Lymphocytes # (auto) 1.6 10 ^3/uL (0.4-5.4); Lymphocytes % (auto) 15.2 % (10.0-50.0); Mean Corpuscular Hemoglobin 23.3 pg (28.0-32.0); Mean Corpuscular Hgb Conc. 31.3 g/dL (32.0-36.0); Mean Corpuscular Volume 74.3 fL (80.0-100.0); Monocytes # (auto) 0.8 10 ^3/uL (0-1.3); Neutrophils # (auto) 7.7 10 ^3/uL (1.6-8.6); Neutrophils % (auto) 74.6 % (37.0-80.0); Red Blood Cells 5.89 10^6/uL (4.0-5.20); White Blood Cell 10.3 10^3/uL (4.4-10.8)
[2022-10-14 20:24] LABS: Red Cell Distribution Width 22.4 % (11.8-14.3)
[2022-10-14] MEDS: PROPOFOL 100 ML IV SCH (20:45)
[2022-10-14] MEDS: VASOPRESSIN 20 UNITS in SODIUM CHL 0.9% 99 ML IV SCH (20:45)
[2022-10-14] MEDS: ATORVASTATIN 20 MG TAB PO SCH (22:27)
[2022-10-14] MEDS: fentaNYL Drip 2500mCg/250mlNS 250 ML IV SCH (23:00)
[2022-10-14 23:26] LABS: BUN/Creatinine Ratio 32.7; Calcium 8.2 mg/dL (8.5-10.1); Potassium 5.1 mmol/L (3.5-5.1)
[2022-10-15] VITALS (105 sets, daily range): BP systolic 70–134; BP diastolic 40–86
[2022-10-15] MEDS: MIDAZOLAM DRIP 50 mg/50mL 50 ML IV SCH ×6 (00:02→22:20)
[2022-10-15 05:13] LABS: Basophils # (auto) 0.1 10 ^3/uL (0-0.2); Eosinophils # (auto) 0.1 10 ^3/uL (0-0.8); Mean Corpuscular Hemoglobin 23.1 pg (28.0-32.0); Nucleated Red Blood Cells % 0.2 %
[2022-10-15 05:16] LABS: Eosinophils % (auto) 0.6 % (0.0-7.0); Hematocrit 40.6 % (36.0-46.0); Hemoglobin 13.1 g/dL (12.2-16.2); Lymphocytes # (auto) 1.9 10 ^3/uL (0.4-5.4); Lymphocytes % (auto) 20.2 % (10.0-50.0); Mean Corpuscular Hgb Conc. 32.2 g/dL (32.0-36.0); Mean Corpuscular Volume 71.8 fL (80.0-100.0); Monocytes % (auto) 10.3 % (0.0-12.0); Neutrophils # (auto) 6.5 10 ^3/uL (1.6-8.6); Neutrophils % (auto) 67.9 % (37.0-80.0); Red Blood Cells 5.66 10^6/uL (4.0-5.20); White Blood Cell 9.5 10^3/uL (4.4-10.8)
[2022-10-15] MEDS: MEROPENEM 1GM IVPB 100 ML IV SCH ×3 (05:24→21:45)
[2022-10-15 05:31] LABS: BUN/Creatinine Ratio 33.3; Calcium 8.2 mg/dL (8.5-10.1); Potassium 5.1 mmol/L (3.5-5.1)
[2022-10-15 05:45] LABS: Red Cell Distribution Width 21.8 % (11.8-14.3)
[2022-10-15] MEDS: ACETAMINOPHEN 325 MG TAB PO PRN (06:13)
[2022-10-15] MEDS: InsuLIN REG 1unit/0.01ml Soln (100units/ml) SC SCH ×4 (06:20→21:28)
[2022-10-15] MEDS: ACCU-CHEK COMFORT CURVE STRIP VI SCH ×4 (06:20→21:30)
[2022-10-15] MEDS: PHENYLEPHRINE IV 250 ML IV SCH ×2 (07:45→16:05)
[2022-10-15] MEDS: VASOPRESSIN 20 UNITS in SODIUM CHL 0.9% 99 ML IV SCH ×2 (08:37→18:17)
[2022-10-15] MEDS: levETIRAcetam 500 MG TAB PO SCH ×2 (09:38→21:44)
[2022-10-15] MEDS: ASPirin 81 mg TAB PO SCH (09:38)
[2022-10-15] MEDS: SACUBITRIL-VALSARTAN 24mg/26mg TAB PO SCH ×2 (09:38→22:00)
[2022-10-15] MEDS: ENOXAPARIN SOD 40 MG/0.4 ML SYRINGE SC SCH (09:39)
[2022-10-15] MEDS: FUROSEMIDE 40 MG/4 ML VIAL IV SCH ×2 (09:39→22:29)
[2022-10-15] MEDS: NICOTINE 7MG/24HR TOPICAL PATCH TD SCH (09:53)
[2022-10-15] MEDS: SODIUM CHLOR 0.9% PF (SALINE LOCK) 10ML VIAL/SYR IV SCH ×2 (09:53→21:44)
[2022-10-15] MEDS: NOREPINEPHRINE 8 MG/250ML KIT 250 ML IV SCH ×3 (16:45→23:03)
[2022-10-15] MEDS: fentaNYL Drip 2500mCg/250mlNS 250 ML IV SCH (20:45)
[2022-10-15] MEDS: PROPOFOL 100 ML IV SCH (20:45)
[2022-10-15] MEDS: ATORVASTATIN 20 MG TAB PO SCH (21:44)
[2022-10-16] VITALS (104 sets, daily range): BP systolic 69–116; BP diastolic 34–79
[2022-10-16] MEDS ORDERED: MIDAZOLAM HCL 5 MG/ML-1ML VIAL IV ONE
[2022-10-16] MEDS: PHENYLEPHRINE IV 250 ML IV SCH ×3 (00:25→17:05)
[2022-10-16] MEDS: MIDAZOLAM DRIP 50 mg/50mL 50 ML IV SCH ×7 (01:23→22:32)
[2022-10-16] MEDS: ACETAMINOPHEN 325 MG TAB PO PRN (02:20)
[2022-10-16] MEDS: NOREPINEPHRINE 8 MG/250ML KIT 250 ML IV SCH ×5 (04:00→23:29)
[2022-10-16 05:35] LABS: Calcium 8.5 mg/dL (8.5-10.1); Potassium 4.4 mmol/L (3.5-5.1)
[2022-10-16] MEDS: VASOPRESSIN 20 UNITS in SODIUM CHL 0.9% 99 ML IV SCH ×3 (05:39→22:31)
[2022-10-16] MEDS: MEROPENEM 1GM IVPB 100 ML IV SCH ×3 (05:40→21:55)
[2022-10-16] MEDS: ACCU-CHEK COMFORT CURVE STRIP VI SCH ×4 (06:18→21:24)
[2022-10-16] MEDS: InsuLIN REG 1unit/0.01ml Soln (100units/ml) SC SCH ×4 (06:19→21:25)
[2022-10-16 08:59] LABS: Hematocrit 44.2 % (36.0-46.0); Hemoglobin 14.1 g/dL (12.2-16.2); Mean Corpuscular Hemoglobin 23.3 pg (28.0-32.0); Mean Corpuscular Hgb Conc. 31.8 g/dL (32.0-36.0); Mean Corpuscular Volume 73.2 fL (80.0-100.0); Red Blood Cells 6.04 10^6/uL (4.0-5.20); White Blood Cell 7.9 10^3/uL (4.4-10.8)
[2022-10-16 09:04] LABS: Red Cell Distribution Width 21.6 % (11.8-14.3)
[2022-10-16 09:05] LABS: Blast Cells 0; Metamyelocytes % 0; Myelocytes % 0; Promyelocytes % 0; Reactive Lymphocytes 0
[2022-10-16] MEDS: ENOXAPARIN SOD 40 MG/0.4 ML SYRINGE SC SCH (09:45)
[2022-10-16] MEDS: FUROSEMIDE 40 MG/4 ML VIAL IV SCH ×2 (09:46→21:55)
[2022-10-16] MEDS: SACUBITRIL-VALSARTAN 24mg/26mg TAB PO SCH ×2 (09:46→21:55)
[2022-10-16] MEDS: ASPirin 81 mg TAB PO SCH (09:46)
[2022-10-16] MEDS: levETIRAcetam 500 MG TAB PO SCH ×2 (09:47→21:56)
[2022-10-16] MEDS: SODIUM CHLOR 0.9% PF (SALINE LOCK) 10ML VIAL/SYR IV SCH ×2 (09:47→21:56)
[2022-10-16] MEDS ORDERED: Glucerna 1.2 Cal 1Liter BOTTLE GT SCH (10:15)
[2022-10-16] MEDS: NICOTINE 7MG/24HR TOPICAL PATCH TD SCH (12:43)
[2022-10-16 14:23] LABS: Band Neutrophils % (manual) 5; Basophils % (manual) 1 (0.0-2.0); Eosinophils % (manual) 1 (0-7); Lymphocytes % (manual) 21 (10.0-50.0); Monocytes % (manual) 14 (0-12)
[2022-10-16] MEDS: fentaNYL Drip 2500mCg/250mlNS 250 ML IV SCH (15:42)
[2022-10-16] MEDS: PROPOFOL 100 ML IV SCH (20:45)
[2022-10-16] MEDS: ATORVASTATIN 20 MG TAB PO SCH (21:55)
[2022-10-17] VITALS (102 sets, daily range): BP systolic 86–125; BP diastolic 55–77
[2022-10-17] MEDS: PHENYLEPHRINE IV 250 ML IV SCH ×2 (01:25→09:45)
[2022-10-17] MEDS: MIDAZOLAM DRIP 50 mg/50mL 50 ML IV SCH ×3 (02:29→20:21)
[2022-10-17 05:22] LABS: Basophils # (auto) 0.1 10 ^3/uL (0-0.2); Basophils % (auto) 1.2 % (0.0-2.0); Mean Corpuscular Volume 76.1 fL (80.0-100.0); Monocytes # (auto) 1.2 10 ^3/uL (0-1.3)
[2022-10-17 05:25] LABS: Eosinophils # (auto) 0.1 10 ^3/uL (0-0.8); Eosinophils % (auto) 1.4 % (0.0-7.0); Hematocrit 46.9 % (36.0-46.0); Hemoglobin 14.1 g/dL (12.2-16.2); Lymphocytes # (auto) 1.4 10 ^3/uL (0.4-5.4); Lymphocytes % (auto) 16.3 % (10.0-50.0); Mean Corpuscular Hemoglobin 22.8 pg (28.0-32.0); Monocytes % (auto) 13.5 % (0.0-12.0); Neutrophils # (auto) 5.9 10 ^3/uL (1.6-8.6); Neutrophils % (auto) 67.6 % (37.0-80.0); Nucleated Red Blood Cells % 0.1 %; Red Blood Cells 6.17 10^6/uL (4.0-5.20); White Blood Cell 8.8 10^3/uL (4.4-10.8)
[2022-10-17 05:32] LABS: Red Cell Distribution Width 22.5 % (11.8-14.3)
[2022-10-17] MEDS: MEROPENEM 1GM IVPB 100 ML IV SCH ×3 (05:32→22:31)
[2022-10-17] MEDS: NOREPINEPHRINE 8 MG/250ML KIT 250 ML IV SCH ×2 (05:33→11:48)
[2022-10-17 05:41] LABS: BUN/Creatinine Ratio 22.7; Calcium 8.4 mg/dL (8.5-10.1)
[2022-10-17] MEDS: ACCU-CHEK COMFORT CURVE STRIP VI SCH ×4 (06:13→22:00)
[2022-10-17] MEDS: InsuLIN REG 1unit/0.01ml Soln (100units/ml) SC SCH ×4 (06:15→22:00)
[2022-10-17] MEDS: ENOXAPARIN SOD 40 MG/0.4 ML SYRINGE SC SCH (10:00)
[2022-10-17] MEDS: NICOTINE 7MG/24HR TOPICAL PATCH TD SCH (10:00)
[2022-10-17] MEDS: SODIUM CHLOR 0.9% PF (SALINE LOCK) 10ML VIAL/SYR IV SCH ×2 (10:00→22:31)
[2022-10-17] MEDS: levETIRAcetam 500 MG TAB PO SCH ×2 (10:34→22:32)
[2022-10-17] MEDS: SACUBITRIL-VALSARTAN 24mg/26mg TAB PO SCH ×2 (10:34→22:32)
[2022-10-17] MEDS: FUROSEMIDE 40 MG/4 ML VIAL IV SCH ×2 (10:35→22:31)
[2022-10-17] MEDS: ASPirin 81 mg TAB PO SCH (10:35)
[2022-10-17] MEDS: VASOPRESSIN 20 UNITS in SODIUM CHL 0.9% 99 ML IV SCH ×2 (15:27→22:34)
[2022-10-17] MEDS: fentaNYL Drip 2500mCg/250mlNS 250 ML IV SCH (20:45)
[2022-10-17] MEDS: ATORVASTATIN 20 MG TAB PO SCH (22:32)
[2022-10-18] VITALS (91 sets, daily range): BP systolic 62–127; BP diastolic 31–86
[2022-10-18] MEDS: NOREPINEPHRINE 8 MG/250ML KIT 250 ML IV SCH ×2 (00:35→20:00)
[2022-10-18] MEDS: MIDAZOLAM DRIP 50 mg/50mL 50 ML IV SCH ×3 (04:00→21:57)
[2022-10-18] MEDS: MEROPENEM 1GM IVPB 100 ML IV SCH ×3 (06:00→21:56)
[2022-10-18] MEDS: ACCU-CHEK COMFORT CURVE STRIP VI SCH ×4 (06:00→22:00)
[2022-10-18] MEDS: InsuLIN REG 1unit/0.01ml Soln (100units/ml) SC SCH ×3 (07:00→17:00)
[2022-10-18] MEDS: FUROSEMIDE 40 MG/4 ML VIAL IV SCH ×2 (09:58→21:55)
[2022-10-18] MEDS: ENOXAPARIN SOD 40 MG/0.4 ML SYRINGE SC SCH (09:59)
[2022-10-18] MEDS: levETIRAcetam 500 MG TAB PO SCH ×2 (09:59→21:56)
[2022-10-18] MEDS: SACUBITRIL-VALSARTAN 24mg/26mg TAB PO SCH ×2 (09:59→21:56)
[2022-10-18] MEDS: ASPirin 81 mg TAB PO SCH (09:59)
[2022-10-18] MEDS: SODIUM CHLOR 0.9% PF (SALINE LOCK) 10ML VIAL/SYR IV SCH ×2 (09:59→21:56)
[2022-10-18] MEDS: NICOTINE 7MG/24HR TOPICAL PATCH TD SCH (10:00)
[2022-10-18] MEDS: VASOPRESSIN 20 UNITS in SODIUM CHL 0.9% 99 ML IV SCH (21:55)
[2022-10-18] MEDS: ATORVASTATIN 20 MG TAB PO SCH (21:56)
[2022-10-19] VITALS (103 sets, daily range): BP systolic 78–121; BP diastolic 44–87
[2022-10-19] MEDS: NOREPINEPHRINE 8 MG/250ML KIT 250 ML IV SCH ×2 (03:22→18:10)
[2022-10-19] MEDS: MIDAZOLAM DRIP 50 mg/50mL 50 ML IV SCH (03:23)
[2022-10-19] MEDS: VASOPRESSIN 20 UNITS in SODIUM CHL 0.9% 99 ML IV SCH ×2 (03:24→09:55)
[2022-10-19] MEDS: MEROPENEM 1GM IVPB 100 ML IV SCH (06:00)
[2022-10-19] MEDS: ACCU-CHEK COMFORT CURVE STRIP VI SCH ×4 (07:00→23:48)
[2022-10-19] MEDS: InsuLIN REG 1unit/0.01ml Soln (100units/ml) SC SCH ×5 (07:00→22:00)
[2022-10-19] MEDS: FUROSEMIDE 40 MG/4 ML VIAL IV SCH ×2 (09:58→23:45)
[2022-10-19] MEDS: ENOXAPARIN SOD 40 MG/0.4 ML SYRINGE SC SCH (09:58)
[2022-10-19] MEDS: SODIUM CHLOR 0.9% PF (SALINE LOCK) 10ML VIAL/SYR IV SCH ×2 (09:58→23:46)
[2022-10-19] MEDS: ASPirin 81 mg TAB PO SCH (09:59)
[2022-10-19] MEDS: SACUBITRIL-VALSARTAN 24mg/26mg TAB PO SCH ×2 (09:59→23:46)
[2022-10-19] MEDS: levETIRAcetam 500 MG TAB PO SCH ×2 (09:59→23:46)
[2022-10-19] MEDS: NICOTINE 7MG/24HR TOPICAL PATCH TD SCH (12:23)
[2022-10-19] MEDS: ATORVASTATIN 20 MG TAB PO SCH (23:47)
[2022-10-20] VITALS (79 sets, daily range): BP systolic 76–130; BP diastolic 42–90
[2022-10-20 04:50] LABS: White Blood Cell 9.7 10^3/uL (4.4-10.8)
[2022-10-20 04:52] LABS: Basophils # (auto) 0.1 10 ^3/uL (0-0.2); Eosinophils # (auto) 0.1 10 ^3/uL (0-0.8); Eosinophils % (auto) 1.3 % (0.0-7.0); Hematocrit 45.3 % (36.0-46.0); Lymphocytes # (auto) 1.3 10 ^3/uL (0.4-5.4); Lymphocytes % (auto) 13.5 % (10.0-50.0); Mean Corpuscular Hemoglobin 22.5 pg (28.0-32.0); Mean Corpuscular Hgb Conc. 30.8 g/dL (32.0-36.0); Mean Corpuscular Volume 73.2 fL (80.0-100.0); Monocytes # (auto) 0.7 10 ^3/uL (0-1.3); Monocytes % (auto) 6.7 % (0.0-12.0); Neutrophils # (auto) 7.5 10 ^3/uL (1.6-8.6); Neutrophils % (auto) 77.5 % (37.0-80.0); Nucleated Red Blood Cells % 0.1 %; Red Blood Cells 6.19 10^6/uL (4.0-5.20)
[2022-10-20 05:09] LABS: Albumin 2.6 g/dL (3.4-5.0); BUN/Creatinine Ratio 11.8; Calcium 8.1 mg/dL (8.5-10.1); Potassium 3.2 mmol/L (3.5-5.1)
[2022-10-20 05:11] LABS: Bilirubin, Total 2.7 mg/dL (0.2-1.0); Total Protein 5.9 g/dL (6.4-8.2)
[2022-10-20] MEDS: ACCU-CHEK COMFORT CURVE STRIP VI SCH ×3 (07:00→17:30)
[2022-10-20] MEDS: InsuLIN REG 1unit/0.01ml Soln (100units/ml) SC SCH ×3 (07:00→17:30)
[2022-10-20] MEDS: ASPirin 81 mg TAB PO SCH (09:44)
[2022-10-20] MEDS: levETIRAcetam 500 MG TAB PO SCH (09:44)
[2022-10-20] MEDS: SACUBITRIL-VALSARTAN 24mg/26mg TAB PO SCH (09:44)
[2022-10-20] MEDS: FUROSEMIDE 40 MG/4 ML VIAL IV SCH (09:45)
[2022-10-20] MEDS: SODIUM CHLOR 0.9% PF (SALINE LOCK) 10ML VIAL/SYR IV SCH (09:45)
[2022-10-20] MEDS: ENOXAPARIN SOD 40 MG/0.4 ML SYRINGE SC SCH (09:45)
[2022-10-20] MEDS: NICOTINE 7MG/24HR TOPICAL PATCH TD SCH (09:46)
[2022-10-20] MEDS: POTASSIUM CHL 20MEQ/100ML 100 ML IV SCH ×2 (11:19→13:28)
[2022-10-20] MEDS: VASOPRESSIN 20 UNITS in SODIUM CHL 0.9% 99 ML IV SCH (13:27)
[2022-10-20] MEDS: ACETAMINOPHEN 325 MG TAB PO PRN (13:41)
[2022-10-20] MEDS: MIDAZOLAM DRIP 50 mg/50mL 50 ML IV SCH (20:45)
[2022-10-21] VITALS (99 sets, daily range): BP systolic 80–135; BP diastolic 41–92
[2022-10-21] MEDS: InsuLIN REG 1unit/0.01ml Soln (100units/ml) SC SCH ×5 (00:16→21:39)
[2022-10-21] MEDS: ACCU-CHEK COMFORT CURVE STRIP VI SCH ×5 (00:16→21:39)
[2022-10-21] MEDS: levETIRAcetam 500 MG TAB PO SCH ×3 (00:17→21:37)
[2022-10-21] MEDS: ATORVASTATIN 20 MG TAB PO SCH ×2 (00:17→21:36)
[2022-10-21] MEDS: SODIUM CHLOR 0.9% PF (SALINE LOCK) 10ML VIAL/SYR IV SCH ×3 (00:18→21:38)
[2022-10-21] MEDS: SACUBITRIL-VALSARTAN 24mg/26mg TAB PO SCH ×3 (00:18→21:22)
[2022-10-21] MEDS: FUROSEMIDE 40 MG/4 ML VIAL IV SCH ×3 (00:19→21:36)
[2022-10-21 05:02] LABS: Basophils # (auto) 0.1 10 ^3/uL (0-0.2); Basophils % (auto) 1.4 % (0.0-2.0); Nucleated Red Blood Cells % 0.1 %
[2022-10-21 05:05] LABS: Eosinophils # (auto) 0.1 10 ^3/uL (0-0.8); Eosinophils % (auto) 1.4 % (0.0-7.0); Hematocrit 45.6 % (36.0-46.0); Hemoglobin 13.4 g/dL (12.2-16.2); Lymphocytes # (auto) 1.5 10 ^3/uL (0.4-5.4); Lymphocytes % (auto) 15.4 % (10.0-50.0); Mean Corpuscular Hemoglobin 22.7 pg (28.0-32.0); Mean Corpuscular Hgb Conc. 29.4 g/dL (32.0-36.0); Mean Corpuscular Volume 77.2 fL (80.0-100.0); Monocytes # (auto) 0.5 10 ^3/uL (0-1.3); Monocytes % (auto) 5.3 % (0.0-12.0); Neutrophils # (auto) 7.6 10 ^3/uL (1.6-8.6); Neutrophils % (auto) 76.5 % (37.0-80.0); White Blood Cell 9.9 10^3/uL (4.4-10.8)
[2022-10-21 05:35] LABS: Red Cell Distribution Width 24.4 % (11.8-14.3)
[2022-10-21] MEDS: NOREPINEPHRINE 8 MG/250ML KIT 250 ML IV SCH ×3 (08:15→23:44)
[2022-10-21] MEDS: VASOPRESSIN 20 UNITS in SODIUM CHL 0.9% 99 ML IV SCH ×2 (08:23→19:30)
[2022-10-21 08:34] LABS: BUN/Creatinine Ratio 17.7; Calcium 8.8 mg/dL (8.5-10.1)
[2022-10-21 09:34] LABS: Potassium 2.9 mmol/L (3.5-5.1)
[2022-10-21] MEDS: ASPirin 81 mg TAB PO SCH (10:00)
[2022-10-21] MEDS: NICOTINE 7MG/24HR TOPICAL PATCH TD SCH (10:55)
[2022-10-21] MEDS: ENOXAPARIN SOD 40 MG/0.4 ML SYRINGE SC SCH (10:55)
[2022-10-21] MEDS: POTASSIUM CHL 20MEQ/100ML 100 ML IV SCH ×3 (10:56→16:20)
[2022-10-21] MEDS: PHENYLEPHRINE IV 250 ML IV SCH ×2 (13:36→22:05)
[2022-10-21 17:13] LABS: BUN/Creatinine Ratio 16.4; Calcium 8.9 mg/dL (8.5-10.1); Potassium 3.2 mmol/L (3.5-5.1)
[2022-10-21] MEDS: MIDAZOLAM DRIP 50 mg/50mL 50 ML IV SCH (20:45)
[2022-10-21] MEDS: HYDROcodone-ACET 5/325MG TAB PO PRN (21:37)
[2022-10-22] VITALS (91 sets, daily range): BP systolic 80–121; BP diastolic 51–82
[2022-10-22 05:01] LABS: Basophils # (auto) 0.2 10 ^3/uL (0-0.2); Basophils % (auto) 1.8 % (0.0-2.0); Eosinophils # (auto) 0.3 10 ^3/uL (0-0.8); Monocytes # (auto) 0.5 10 ^3/uL (0-1.3); Monocytes % (auto) 5.7 % (0.0-12.0); Nucleated Red Blood Cells % 0.1 %
[2022-10-22 05:03] LABS: Eosinophils % (auto) 3.3 % (0.0-7.0); Hematocrit 40.9 % (36.0-46.0); Hemoglobin 12.5 g/dL (12.2-16.2); Lymphocytes # (auto) 1.4 10 ^3/uL (0.4-5.4); Lymphocytes % (auto) 15.5 % (10.0-50.0); Mean Corpuscular Hemoglobin 22.6 pg (28.0-32.0); Mean Corpuscular Hgb Conc. 30.7 g/dL (32.0-36.0); Mean Corpuscular Volume 73.5 fL (80.0-100.0); Neutrophils # (auto) 6.6 10 ^3/uL (1.6-8.6); Neutrophils % (auto) 73.7 % (37.0-80.0); Red Blood Cells 5.56 10^6/uL (4.0-5.20)
[2022-10-22 05:08] LABS: Calcium 8.6 mg/dL (8.5-10.1)
[2022-10-22 05:09] LABS: Red Cell Distribution Width 23.3 % (11.8-14.3)
[2022-10-22 05:10] LABS: BUN/Creatinine Ratio 16.1
[2022-10-22 05:25] LABS: Potassium 2.8 mmol/L (3.5-5.1)
[2022-10-22] MEDS: InsuLIN REG 1unit/0.01ml Soln (100units/ml) SC SCH ×4 (06:03→22:00)
[2022-10-22] MEDS: ACCU-CHEK COMFORT CURVE STRIP VI SCH ×4 (06:04→22:00)
[2022-10-22] MEDS: POTASSIUM CHL 20MEQ/100ML 100 ML IV SCH ×4 (07:49→12:36)
[2022-10-22] MEDS: SACUBITRIL-VALSARTAN 24mg/26mg TAB PO SCH ×2 (09:16→22:30)
[2022-10-22] MEDS: FUROSEMIDE 40 MG/4 ML VIAL IV SCH ×2 (09:26→22:30)
[2022-10-22] MEDS: ENOXAPARIN SOD 40 MG/0.4 ML SYRINGE SC SCH (09:26)
[2022-10-22] MEDS: ASPirin 81 mg TAB PO SCH (09:28)
[2022-10-22] MEDS: levETIRAcetam 500 MG TAB PO SCH ×2 (09:28→22:30)
[2022-10-22] MEDS: SODIUM CHLOR 0.9% PF (SALINE LOCK) 10ML VIAL/SYR IV SCH ×2 (09:28→22:00)
[2022-10-22] MEDS: NICOTINE 7MG/24HR TOPICAL PATCH TD SCH (12:58)
[2022-10-22] MEDS: HYDROcodone-ACET 5/325MG TAB PO PRN ×2 (13:24→20:16)
[2022-10-22 15:28] LABS: BUN/Creatinine Ratio 20.4; Potassium 3.4 mmol/L (3.5-5.1)
[2022-10-22] MEDS ORDERED: POTASSIUM CHL 20MEQ/100ML 100 ML IV ONE (16:30)
[2022-10-22] MEDS: diphenhdrAMINE HCL 50 MG/1 ML VL IV PRN (20:15)
[2022-10-22] MEDS: NOREPINEPHRINE 8 MG/250ML KIT 250 ML IV SCH (20:19)
[2022-10-22] MEDS: ONDANSETRON HCL 4 MG/2 ML VIAL IV PRN (22:31)
[2022-10-22] MEDS: ATORVASTATIN 20 MG TAB PO SCH (22:31)
[2022-10-23] VITALS (80 sets, daily range): BP systolic 80–116; BP diastolic 46–79
[2022-10-23 05:16] LABS: BUN/Creatinine Ratio 16.4; Calcium 8.6 mg/dL (8.5-10.1); Potassium 3.8 mmol/L (3.5-5.1)
[2022-10-23 05:23] LABS: Basophils # (auto) 0.2 10 ^3/uL (0-0.2); Mean Corpuscular Hemoglobin 22.7 pg (28.0-32.0)
[2022-10-23 05:26] LABS: Basophils % (auto) 2.6 % (0.0-2.0); Eosinophils # (auto) 0.4 10 ^3/uL (0-0.8); Eosinophils % (auto) 4.7 % (0.0-7.0); Hematocrit 41.7 % (36.0-46.0); Hemoglobin 12.8 g/dL (12.2-16.2); Lymphocytes # (auto) 1.8 10 ^3/uL (0.4-5.4); Lymphocytes % (auto) 19.8 % (10.0-50.0); Mean Corpuscular Hgb Conc. 30.6 g/dL (32.0-36.0); Mean Corpuscular Volume 74.3 fL (80.0-100.0); Monocytes # (auto) 0.5 10 ^3/uL (0-1.3); Monocytes % (auto) 5.8 % (0.0-12.0); Neutrophils % (auto) 67.1 % (37.0-80.0); Nucleated Red Blood Cells % 0.1 %; Red Blood Cells 5.61 10^6/uL (4.0-5.20)
[2022-10-23 05:35] LABS: Red Cell Distribution Width 23.4 % (11.8-14.3)
[2022-10-23] MEDS: ACCU-CHEK COMFORT CURVE STRIP VI SCH ×4 (06:02→21:33)
[2022-10-23] MEDS: InsuLIN REG 1unit/0.01ml Soln (100units/ml) SC SCH ×4 (06:02→21:42)
[2022-10-23] MEDS: PROPOFOL 100 ML IV SCH ×2 (07:45→20:23)
[2022-10-23] MEDS: PHENYLEPHRINE IV 250 ML IV SCH ×2 (07:45→20:23)
[2022-10-23] MEDS: MIDAZOLAM DRIP 50 mg/50mL 50 ML IV SCH ×2 (07:45→20:25)
[2022-10-23] MEDS: fentaNYL Drip 2500mCg/250mlNS 250 ML IV SCH ×2 (07:45→20:22)
[2022-10-23] MEDS: VASOPRESSIN 20 UNITS in SODIUM CHL 0.9% 99 ML IV SCH ×2 (07:45→20:25)
[2022-10-23] MEDS: levETIRAcetam 500 MG TAB PO SCH ×2 (09:09→21:32)
[2022-10-23] MEDS: ASPirin 81 mg TAB PO SCH (09:09)
[2022-10-23] MEDS: FUROSEMIDE 40 MG/4 ML VIAL IV SCH ×2 (09:12→21:32)
[2022-10-23] MEDS: SACUBITRIL-VALSARTAN 24mg/26mg TAB PO SCH ×2 (09:34→21:52)
[2022-10-23] MEDS: NICOTINE 7MG/24HR TOPICAL PATCH TD SCH (10:00)
[2022-10-23] MEDS: ENOXAPARIN SOD 40 MG/0.4 ML SYRINGE SC SCH (10:16)
[2022-10-23] MEDS: SODIUM CHLOR 0.9% PF (SALINE LOCK) 10ML VIAL/SYR IV SCH ×2 (10:27→21:32)
[2022-10-23] MEDS: NOREPINEPHRINE 8 MG/250ML KIT 250 ML IV SCH (17:38)
[2022-10-23] MEDS: ATORVASTATIN 20 MG TAB PO SCH (21:33)
[2022-10-24] VITALS (87 sets, daily range): BP systolic 75–120; BP diastolic 37–80
[2022-10-24 04:59] LABS: Basophils # (auto) 0.2 10 ^3/uL (0-0.2); Eosinophils # (auto) 0.3 10 ^3/uL (0-0.8); Eosinophils % (auto) 2.9 % (0.0-7.0); Hematocrit 40.4 % (36.0-46.0); Lymphocytes # (auto) 1.5 10 ^3/uL (0.4-5.4); Monocytes # (auto) 0.7 10 ^3/uL (0-1.3); Nucleated Red Blood Cells % 0.1 %
[2022-10-24 05:03] LABS: Basophils % (auto) 2.2 % (0.0-2.0); Hemoglobin 12.5 g/dL (12.2-16.2); Lymphocytes % (auto) 15.3 % (10.0-50.0); Monocytes % (auto) 6.7 % (0.0-12.0); Neutrophils # (auto) 7.2 10 ^3/uL (1.6-8.6); Neutrophils % (auto) 72.9 % (37.0-80.0); Red Blood Cells 5.46 10^6/uL (4.0-5.20); White Blood Cell 9.9 10^3/uL (4.4-10.8)
[2022-10-24 05:06] LABS: Red Cell Distribution Width 24.9 % (11.8-14.3)
[2022-10-24 05:13] LABS: BUN/Creatinine Ratio 16.4; Calcium 8.3 mg/dL (8.5-10.1); Potassium 3.4 mmol/L (3.5-5.1)
[2022-10-24] MEDS: ACCU-CHEK COMFORT CURVE STRIP VI SCH ×4 (06:17→21:33)
[2022-10-24] MEDS: InsuLIN REG 1unit/0.01ml Soln (100units/ml) SC SCH ×3 (06:17→17:35)
[2022-10-24] MEDS: NOREPINEPHRINE 8 MG/250ML KIT 250 ML IV SCH (08:35)
[2022-10-24] MEDS: NICOTINE 7MG/24HR TOPICAL PATCH TD SCH (10:00)
[2022-10-24] MEDS: SACUBITRIL-VALSARTAN 24mg/26mg TAB PO SCH ×3 (10:00→21:35)
[2022-10-24] MEDS: levETIRAcetam 500 MG TAB PO SCH ×2 (10:08→21:14)
[2022-10-24] MEDS: ASPirin 81 mg TAB PO SCH (10:10)
[2022-10-24] MEDS: ENOXAPARIN SOD 40 MG/0.4 ML SYRINGE SC SCH (10:10)
[2022-10-24] MEDS: SODIUM CHLOR 0.9% PF (SALINE LOCK) 10ML VIAL/SYR IV SCH ×2 (10:10→21:13)
[2022-10-24] MEDS: FUROSEMIDE 40 MG/4 ML VIAL IV SCH ×2 (10:14→21:34)
[2022-10-24] MEDS ORDERED: POTASSIUM EFFERVESENT TAB 25 MEQ GT ONE (10:45)
[2022-10-24] MEDS ORDERED: NOREPINEPHRINE 8 MG/250ML KIT 250 ML IV SCH (14:45)
[2022-10-24] MEDS: ATORVASTATIN 20 MG TAB PO SCH (21:15)
[2022-10-25] VITALS (24 sets, daily range): BP systolic 71–116; BP diastolic 38–76
[2022-10-25] MEDS: ACCU-CHEK COMFORT CURVE STRIP VI SCH (05:00)
[2022-10-25 05:12] LABS: Eosinophils # (auto) 0.3 10 ^3/uL (0-0.8); Hemoglobin 12.3 g/dL (12.2-16.2)
[2022-10-25 05:17] LABS: Basophils # (auto) 0.1 10 ^3/uL (0-0.2); Eosinophils % (auto) 4.4 % (0.0-7.0); Hematocrit 39.5 % (36.0-46.0); Lymphocytes # (auto) 1.5 10 ^3/uL (0.4-5.4); Lymphocytes % (auto) 21.7 % (10.0-50.0); Mean Corpuscular Hemoglobin 23.2 pg (28.0-32.0); Mean Corpuscular Hgb Conc. 31.2 g/dL (32.0-36.0); Mean Corpuscular Volume 74.5 fL (80.0-100.0); Monocytes # (auto) 0.4 10 ^3/uL (0-1.3); Monocytes % (auto) 5.9 % (0.0-12.0); Neutrophils # (auto) 4.6 10 ^3/uL (1.6-8.6); Nucleated Red Blood Cells % 0.2 %; White Blood Cell 6.9 10^3/uL (4.4-10.8)
[2022-10-25 05:27] LABS: BUN/Creatinine Ratio 23.6; Calcium 8.6 mg/dL (8.5-10.1); Potassium 4.1 mmol/L (3.5-5.1)
[2022-10-25 06:03] LABS: Red Cell Distribution Width 24.9 % (11.8-14.3)
[2022-10-25] MEDS: InsuLIN REG 1unit/0.01ml Soln (100units/ml) SC SCH (06:05)
[2022-10-25] MEDS: NICOTINE 7MG/24HR TOPICAL PATCH TD SCH ×2 (09:08→09:39)
[2022-10-25] MEDS: ENOXAPARIN SOD 40 MG/0.4 ML SYRINGE SC SCH ×2 (09:08→09:38)
[2022-10-25] MEDS: levETIRAcetam 500 MG TAB PO SCH (09:10)
[2022-10-25] MEDS: ASPirin 81 mg TAB PO SCH (09:10)
[2022-10-25] MEDS: SODIUM CHLOR 0.9% PF (SALINE LOCK) 10ML VIAL/SYR IV SCH (09:11)
[2022-10-25] MEDS: FUROSEMIDE 40 MG/4 ML VIAL IV SCH (09:11)
[2022-10-25] MEDS: SACUBITRIL-VALSARTAN 24mg/26mg TAB PO SCH (10:00)
== END 2022-10-25 10:15 | disposition left against medical advice (07) | DRG 192 ==
LOC: ER 06:09 → TELE 17:07 → TELE-WESTW 10-01 15:47 → ICU WEST 10-06 12:12 → WEST WING 10-10 08:04 → TELE-WESTW 10-10 22:24 → ICU CENTRL 10-14 19:01
PROVIDERS: ADMIT Registered Nurse; ATTEND Internal Medicine Pulmonary Disease
PROC: 02HV33Z Insertion of Infusion Device into Superior Vena Cava, Percutaneous Approach (ICD-10-PCS; principal; 2022-10-06)
PROC: B548ZZA Ultrasonography of Superior Vena Cava, Guidance (ICD-10-PCS; 2022-10-06)
PROC: B2151ZZ Fluoroscopy of Left Heart using Low Osmolar Contrast (ICD-10-PCS; 2022-10-09)
PROC: B2111ZZ Fluoroscopy of Multiple Coronary Arteries using Low Osmolar Contrast (ICD-10-PCS; 2022-10-09)
PROC: 4A023N6 Measurement of Cardiac Sampling and Pressure, Right Heart, Percutaneous Approach (ICD-10-PCS; 2022-10-09)
PROC: 5A1955Z Respiratory Ventilation, Greater than 96 Consecutive Hours (ICD-10-PCS; 2022-10-14)
PROC: 0BH17EZ Insertion of Endotracheal Airway into Trachea, Via Natural or Artificial Opening (ICD-10-PCS; 2022-10-14)
DX: I13.0 Hypertensive heart and chronic kidney disease with heart failure and stage 1 through stage 4 chronic kidney disease, or unspecified chronic kidney disease (principal); R65.21 Severe sepsis with septic shock; J96.21 Acute and chronic respiratory failure with hypoxia; J69.0 Pneumonitis due to inhalation of food and vomit; A41.9 Sepsis, unspecified organism; I21.4 Non-ST elevation (NSTEMI) myocardial infarction; N17.9 Acute kidney failure, unspecified; R18.8 Other ascites; I27.29 Other secondary pulmonary hypertension; Z20.822 Contact with and (suspected) exposure to COVID-19; E87.5 Hyperkalemia; F10.20 Alcohol dependence, uncomplicated; I07.1 Rheumatic tricuspid insufficiency; N18.9 Chronic kidney disease, unspecified; I42.9 Cardiomyopathy, unspecified; J44.9 Chronic obstructive pulmonary disease, unspecified; I50.31 Acute diastolic (congestive) heart failure; Z53.29 Procedure and treatment not carried out because of patient's decision for other reasons; E11.22 Type 2 diabetes mellitus with diabetic chronic kidney disease; E78.5 Hyperlipidemia, unspecified; E11.65 Type 2 diabetes mellitus with hyperglycemia; N39.0 Urinary tract infection, site not specified; Z79.4 Long term (current) use of insulin; Z98.61 Coronary angioplasty status; Z88.0 Allergy status to penicillin; Z79.899 Other long term (current) drug therapy; Z86.73 Personal history of transient ischemic attack (TIA), and cerebral infarction without residual deficits; Z90.49 Acquired absence of other specified parts of digestive tract; I25.2 Old myocardial infarction; Z98.51 Tubal ligation status
CPT/HCPCS: 36415; 36569; 36600; 70450; 71045; 71046; 74176; 76604; 76700; 76705; 76775; 78582; 80048; 80053; 80061; 80307; 81001; 82140; 82306; 82570; 82805; 82962; 83036; 83605; 83735; 83880; 83930; 83935; 83970; 84100; 84132; 84156; 84300; 84443; 84484; 84702; 85007; 85025; 85027; 85610; 85730; 86803; 87040; 87070; 87081; 87086; 87205; 87340; 87426; 92610; 93005; 93306; 93456; 93566; 93971; 94002; 94003; 94640; 94762; 97110; 97163; 99152; 99153; 99291; C1751; G0378; J0696; J1815; J2001; J2185; J2250; J2405; J3480; J7060